=== PATIENT | female | born 1950 | race Caucasian/White ===

== ENCOUNTER 2016-12-17 06:41 | Inpatient (IN) | payer OTHER, BC ==
[~2016-12-17] VITALS: Ht 165.1 cm; Wt 90.8 kg
[~2016-12-17 06:41] MED LIST: AMBIEN10 MG PO; ATACAND8 MG PO; IMITREX6 MG/0.53 SC; LIPITOR10 MG PO; LYRICA100 MG PO; LYRICA200 MG PO; OMEPRAZOLE40 M1 PO; PRISTIQ50 MG PO; PROMETHAZINE HC25 M1 PO; TOPAMAX100 MG PO; TRAZODONE HCL100 MG PO; TREXIMET 85-1 TABLET PO; TYLENOL PM1 CAPLET PO; WELLBUTRIN XL300 MG PO; ZANTAC300 MG PO
[2016-12-17] MEDS ORDERED: DIAZEPAM10 MG PO (07:33)
[2016-12-17 07:42] VITALS: BP 115/67
[2016-12-17 13:00] VITALS: BP 124/76
[2016-12-17 15:00] VITALS: BP 121/59
[2016-12-17 17:00] VITALS: BP 120/75
[2016-12-17 20:00] VITALS: BP 128/60
[2016-12-17 22:20] VITALS: BP 114/52
[2016-12-18 00:10] VITALS: BP 101/50
[2016-12-18 04:25] VITALS: BP 104/54
[2016-12-18 05:28] LABS: HEMATOCRIT 31.8 % (36.0-46.0); MCV 87.1 FL (83-99)
[2016-12-18 08:00] VITALS: BP 94/50
[2016-12-18 11:58] VITALS: BP 99/58
[2016-12-18 15:53] VITALS: BP 97/46
[2016-12-18 20:00] VITALS: BP 117/58
[2016-12-19 00:04] VITALS: BP 113/55
[2016-12-19 04:07] VITALS: BP 101/50
[2016-12-19 05:50] LABS: MCV 88.3 FL (83-99)
[2016-12-19 08:00] VITALS: BP 115/57
[2016-12-19 12:17] VITALS: BP 100/52
[2016-12-19 15:21] VITALS: BP 98/51
[2016-12-19 19:40] VITALS: BP 110/53
[2016-12-20 00:09] VITALS: BP 108/67
[2016-12-20 08:01] VITALS: BP 104/55
[2016-12-20] MEDS ORDERED: LIDOCAINE700 MG TD (09:55)
[2016-12-20] MEDS ORDERED: XARELTO10 MG PO (09:55)
[2016-12-20] MEDS ORDERED: TYLENOL REGULA325 MG PO (09:55)
[2016-12-20] MEDS ORDERED: OXYCODONE HCL5 MG PO (09:55)
[2016-12-20] MEDS ORDERED: CELECOXIB200 MG PO (09:55)
[2016-12-20] MEDS ORDERED: SENNA PLUS TAB1 EACH PO (09:55)
== END 2016-12-20 11:49 | DRG 470 ==
LOC: 3WEST 06:41 → 3EAST 06:41 → 2SOUTH 06:41 → 3WEST 12:45 → 2SOUTH 14:24 → 3EAST 12-19 14:57
PROVIDERS: Orthopaedic Surgery
PROC: 0SRC0J9 Replacement of Right Knee Joint with Synthetic Substitute, Cemented, Open Approach (ICD-10-PCS; principal; 2016-12-17)
DX: M17.11 Unilateral primary osteoarthritis, right knee (principal); F33.9 Major depressive disorder, recurrent, unspecified; M25.571 Pain in right ankle and joints of right foot; G89.29 Other chronic pain; G43.909 Migraine, unspecified, not intractable, without status migrainosus; E78.00 Pure hypercholesterolemia, unspecified; M79.7 Fibromyalgia; E78.5 Hyperlipidemia, unspecified; K21.9 Gastro-esophageal reflux disease without esophagitis; G47.00 Insomnia, unspecified; E55.9 Vitamin D deficiency, unspecified; E66.9 Obesity, unspecified; Z96.652 Presence of left artificial knee joint; E73.9 Lactose intolerance, unspecified; L30.9 Dermatitis, unspecified; E04.2 Nontoxic multinodular goiter; Z68.37 Body mass index [BMI] 37.0-37.9, adult
CPT/HCPCS: 71010; 85014; 85018; C1713; J0131; J0690; J1885; J2250; J2405; J2795; J3010; J3030; J7050; J7120; L1820

== ENCOUNTER 2018-02-10 10:45 | Observation (INO) | payer OTHER, BC ==
[~2018-02-10] VITALS: Ht 165.1 cm; Wt 89.3 kg
[~2018-02-10 10:45] MED LIST changes: +CELECOXIB200 MG PO; +DIAZEPAM10 MG PO; +LIDOCAINE700 MG TD; +OXYCODONE HCL5 MG PO; +SENNA PLUS TAB1 EACH PO; +TYLENOL REGULA325 MG PO; +XARELTO10 MG PO
[2018-02-10 11:47] LABS: HEMATOCRIT 41.4 % (36.0-46.0); MCH 26.3 PG (29.0-34.0); MCHC 31.4 G/DL (30.0-36.0); MCV 83.6 FL (83-99); PLATELET COUNT 236 K/uL (156-360); RBC DIS.WIDTH-CV 17.5 % (11.8-14.6); RED BLOOD COUNT 4.95 M/uL (3.80-5.20); WHITE BLOOD COUNT 8.9 K/uL (4.1-10.2)
[2018-02-10 11:58] LABS: ALBUMIN 3.8 g/dL (3.2-4.8)
[2018-02-10 11:59] LABS: CHLORIDE 107 mEq/L (99-109); POTASSIUM 3.8 mEq/L (3.7-5.4); SODIUM 142 mEq/L (136-147)
[2018-02-10 12:01] LABS: GLUCOSE 110 mg/dL (70-99); TOTAL PROTEIN 6.2 g/dL (6.4-8.3)
[2018-02-10 12:03] LABS: TOTAL BILIRUBIN 0.3 mg/dL (0.0-1.0)
[2018-02-10 12:04] LABS: ALKALINE PHOSPHATASE 36 IU/L (3-129)
[2018-02-10 12:05] LABS: CREATININE 1.1 mg/dL (0.6-1.3); GFR ESTIMATE (CALCULATED) 53 mL/min/
[2018-02-10 12:06] LABS: AST (GOT) 19 IU/L (2-34); UREA NITROGEN (BUN) 14 mg/dL (9-23)
[2018-02-10 12:07] LABS: ALT (GPT) 14 IU/L (3-49)
[2018-02-10 13:24] LABS: LIPASE 22 U/L (1.0-51.0)
[2018-02-10 13:25] LABS: APPEARANCE CLEAR ((CLEAR)); BILIRUBIN NEGATIVE; BLOOD SMALL; COLOR YELLOW ((YELLOW)); GLUCOSE (STRIP) NEGATIVE; KETONES NEGATIVE; LEUKOCYTES NEGATIVE; NITRITE NEGATIVE; PROTEIN (STRIP) NEGATIVE; SPECIFIC GRAVITY 1.009 (1.000-1.030); UROBILINOGEN 0.2 MG/DL (0.2-1.0)
[2018-02-10 13:28] LABS: BACTERIA NONE SEEN /HPF; EPITHELIAL CELLS RARE /HPF; MUCUS TRACE /LPF; RED BLOOD CELLS 0-5 /HPF (0-5); UCUL ADDED? NO; WHITE BLOOD CELLS 0-5 /HPF (0-5)
[2018-02-10] MEDS ORDERED: METOCLOPRAMIDE10 MG PO (15:50)
[2018-02-10] MEDS ORDERED: TYLENOL PM EX-1 EACH PO (15:50)
[2018-02-10] MEDS ORDERED: ZOMIG ZMT5 MG PO (15:50)
[2018-02-10] MEDS ORDERED: NEOMYCIN-POLYMY10 ML RIGHT EAR (15:51)
[2018-02-10] MEDS ORDERED: CARBAMAZEPINE200 MG PO (15:52)
[2018-02-10] MEDS ORDERED: VOLTAREN 1% GE100 GM TP (15:53)
[2018-02-10] MEDS ORDERED: CARTIA XT120 MG PO (15:53)
[2018-02-10] MEDS ORDERED: INTRAROSA6.5 MG VG (15:53)
[2018-02-10] MEDS ORDERED: VENTOLIN HFA18 GM IH (15:53)
[2018-02-10] MEDS ORDERED: BIOFREEZE TP (15:54)
[2018-02-10 17:16] LABS: HEMATOCRIT 40.5 % (36.0-46.0); HEMOGLOBIN 12.6 G/DL (11.9-15.5)
[2018-02-10 17:26] LABS: PTT 26.7 SEC (25-37)
[2018-02-10 21:52] VITALS: BP 146/73
[2018-02-10 22:20] VITALS: BP 143/76
[2018-02-10 23:52] VITALS: BP 99/54
[2018-02-11 03:51] VITALS: BP 113/51
[2018-02-11 05:40] LABS: HEMATOCRIT 37.1 % (36.0-46.0); HEMOGLOBIN 11.3 G/DL (11.9-15.5); MCH 25.2 PG (29.0-34.0); MCHC 30.5 G/DL (30.0-36.0); MCV 82.8 FL (83-99); PLATELET COUNT 217 K/uL (156-360); RBC DIS.WIDTH-CV 17.2 % (11.8-14.6); RBC DIS.WIDTH-SD 51.6 % (39-53); RED BLOOD COUNT 4.48 M/uL (3.80-5.20); WHITE BLOOD COUNT 7.5 K/uL (4.1-10.2)
[2018-02-11 05:43] LABS: CHLORIDE 108 MEQ/L (99-109); CREATININE 0.9 MG/DL (0.6-1.3); GFR ESTIMATE (CALCULATED) > 59 mL/min/; GLUCOSE 109 mg/dL (70-99); POTASSIUM 3.8 MEQ/L (3.7-5.4); SODIUM 139 MEQ/L (136-147); UREA NITROGEN (BUN) 10 mg/dL (9-23)
[2018-02-11 07:42] VITALS: BP 125/56
[2018-02-11 12:02] VITALS: BP 137/56
[2018-02-11 16:54] VITALS: BP 139/62
[2018-02-11 20:11] VITALS: BP 140/60
[2018-02-11 20:37] LABS: HEMATOCRIT 40.5 % (36.0-46.0); HEMOGLOBIN 12.6 G/DL (11.9-15.5); MCV 83.7 FL (83-99)
[2018-02-12 00:10] VITALS: BP 140/62
[2018-02-12 06:08] VITALS: BP 140/71
[2018-02-12 07:55] VITALS: BP 127/64
[2018-02-12] MEDS ORDERED: METRONIDAZOLE500 MG PO (08:04)
[2018-02-12 09:30] LABS: HEMATOCRIT 38.9 % (36.0-46.0); HEMOGLOBIN 11.8 G/DL (11.9-15.5); MCV 84.9 FL (83-99)
[2018-02-12] MEDS ORDERED: CIPRO500 MG PO (13:56)
== END 2018-02-12 14:22 | disposition home or self-care (01) ==
LOC: EME 10:45 → EDOF 16:07 → ENRESERV 16:10 → 3EAST 21:39
PROVIDERS: Internal Medicine
DX: A04.72 Enterocolitis due to Clostridium difficile, not specified as recurrent (principal); M25.571 Pain in right ankle and joints of right foot; Z96.653 Presence of artificial knee joint, bilateral; G43.909 Migraine, unspecified, not intractable, without status migrainosus; K21.9 Gastro-esophageal reflux disease without esophagitis; Z86.19 Personal history of other infectious and parasitic diseases; Z79.2 Long term (current) use of antibiotics; E78.5 Hyperlipidemia, unspecified; I10 Essential (primary) hypertension; M79.7 Fibromyalgia; Z87.11 Personal history of peptic ulcer disease; Z90.710 Acquired absence of both cervix and uterus
CPT/HCPCS: 74177; 80048; 80053; 81003; 83630; 83690; 85014; 85018; 85027; 85610; 85730; 86850; 86900; 86901; 87040; 87493; 87506; 99281; 99285; G0378; J0744; J7030; J7040; S0030